=== PATIENT | female | born 1970 | race Caucasian/White ===

== ENCOUNTER 2020-12-24 16:34 | Emergency (ER) | payer BC ==
[~2020-12-24] VITALS: Ht 162.6 cm; Wt 89.8 kg
[2020-12-24 16:37] VITALS: BP 123/73
--- NOTE | 2020-12-24 16:57 | NUR ---
C/O LEFT SHOULDER PAIN X 3 DAYS.
--- NOTE | 2020-12-24 17:35 | NUR ---
Patient being evaluated by DR NICHOLE at [facility].
[2020-12-24] MEDS ORDERED: NAPR-54 PO (17:45)
[2020-12-24] MEDS: KETOROLAC 60 MG/2 ML VIAL IM ONE (18:00)
== END 2020-12-24 17:58 | disposition home or self-care (01) ==
LOC: MED 16:34
DX: S43.402A Unspecified sprain of left shoulder joint, initial encounter (principal); X50.0XXA Overexertion from strenuous movement or load, initial encounter; Y93.89 Activity, other specified; Y92.89 Other specified places as the place of occurrence of the external cause; Y99.8 Other external cause status
CPT/HCPCS: 96372; 99283; J1885